=== PATIENT | female | born 2000 | race Caucasian/White ===

== ENCOUNTER 2024-02-13 00:26 | Emergency (ER) | payer SELFPAY ==
[2024-02-13 00:28] VITALS: BP 116/100
--- NOTE | 2024-02-13 00:53 | ED.GENMED ---
History of Present Illness
General
Chief Complaint: Headache
Source: patient
Time Seen by Provider: 02/13/24 00:39
History of Present Illness
History of Present Illness:
23-year-old individual presents to the emergency room complaining of headache. Patient has a history of chronic migraines. Patient took migraine medication without relief. Patient also experiencing some bodyaches and chills. Temperature here
noted to be 102.9. Symptoms have been present for the past 24 hours. Positive nausea. Vomited once. Patient states this is their typical migraine except for some scotoma noted. Patient denies any weakness numbness or tingling.
Phy Exam
Physical Exam
Physical Exam:
General: Awake, Alert, Oriented X3. No acute distress.
Vitals: unremarkable
Head: Atraumatic
Eyes: Pupils equal, EOMI
Throat: Airway intact, no exudates
Neck: Trachea midline, no nuchal rigidity
Lungs: Clear and equal b/l
Heart: Regular rate, no murmurs
Abd: Soft, Nontender, No pulsatile mass
Neuro: Cranial nerves intact, muscle strength equal bilaterally, cerebellar exam normal
Skin: Warm, dry, no rash
Extremities: pulses equal b/l, no edema
Course
Orders/Labs/Results
Orders:
Orders
02/13/24 00:52
0.9% Sodium Chloride 1000 ml [Nss] 1,000 ml IV BOLUS
Diphenhydramine [Benadryl] 25 mg IV NOW STA
Ketorolac [Toradol] 15 mg IV NOW STA
Metoclopramide [Reglan] 10 mg IV NOW STA
02/13/24 01:04
Basic Metabolic Panel Urgent
COVID-19 Antigen Urgent
Source: Nasal Swab
Complete Blood Count/With Diff Urgent
Abnormal Lab Results
02/13/24
01:04
WBC 11.7 H 10^3/uL
(4.8-10.8)
RDW 11.4 L %
(11.5-14.5)
MPV 10.6 H fL
(7.4-10.4)
Abs Immat Gran (auto) 0.1 H 10^3/uL
(0-0.05)
Absolute Neuts (auto) 9.9 H 10^3/uL
(1.4-6.5)
Absolute Lymphs (auto) 0.8 L 10^3/uL
(1.2-3.4)
Absolute Monos (auto) 0.9 H 10^3/uL
(0.1-0.6)
Neutrophils % 84.6 H %
(42.2-75.2)
Lymphocytes % 6.5 L %
(20.5-51.1)
Glucose 123 H mg/dl
(70-99)
02/13/24 01:04
02/13/24 01:04
Vital Signs
Initial and Last Documented VS:
Initial Vital Signs
Temp Pulse Resp BP Pulse Ox
102.9 F H 120 20 116/100 95
02/13/24 00:28 02/13/24 00:28 02/13/24 00:28 02/13/24 00:28 02/13/24 00:28
Last Documented Vital Signs
Temp Pulse Resp BP Pulse Ox
101.8 F H 115 16 98/60 96
02/13/24 02:43 02/13/24 02:00 02/13/24 01:21 02/13/24 02:00 02/13/24 02:00
MDM/Problems Addressed
Differential Diagnosis Includes:
Migraine, viral syndrome, COVID
MDM/Problems Addressed:
Patient presents with fever and chills, URI symptoms as well as a migraine headache. Patient has history of migraines. Patient took prescribed medications without improvement. Today's headache is very similar to the typical migraines. No nuchal
rigidity on exam. Patient felt significantly better with treatment. Patient's presentation consistent with several other patients I have seen in the emergency room recently with viral-like illness. Patient stable for discharge home.
*Pulse Oximetry
Patient hypoxic: no
*Critical Care Note
Total Time (30-74mins, 75-104mins- exclusive of procedures): Not Applicable
ED Attending Note
-
Portions of this chart may have been created with voice recognition software.� Occasional wrong word or��sound alike� substitutions may have occurred due to the inherent limitations of voice recognition software.
Discharge Plan
Departure
Patient Disposition: Home (Routine Discharge)
Date of Disposition: 02/13/24
Time of Disposition: 02:37
Patient with high blood pressure during this ER visit?: No
Condition: Good
Discharge Problem:
Acute viral syndrome, Migraine aura, persistent
Instructions: Migraines (DC), Viral Syndrome (DC)
Prescriptions:
No Action
multivitamin Tablet
1 tab PO DAILY
magnesium 500 mg Tablet
500 mg PO DAILY
nortriptyline 10 mg Capsule
20 mg PO DAILY
hydroxyzine HCl 10 mg Tablet
10 mg PO PRN PRN (Reason: anxiety)
sertraline 50 mg Tablet
75 mg PO DAILY
testosterone
0.2 mg SC FR
Referrals:
PRIVATE,PHYSICIAN [Family Provider] -
Interventions
Interventions:
*Risk Screen - Suicide Last Done: 02/13/24 00:28
*General Assessment Last Done: 02/13/24 01:10
*Neglect/Abuse Screening Last Done: 02/13/24 00:28
*ED COVID-19 Vaccine History Last Done: 02/13/24 01:10
*Nursing Disposition Last Done: 02/13/24 02:56
ED- Neurological Assessment Last Done: 02/13/24 01:30
ED-Skin Assessment Last Done: 02/13/24 01:30
Discharge Date and Time
Discharge Date/Time: 02/13/24 02:56
Print Language: [place] [employer] [place] [employer]
[2024-02-13 01:10] VITALS: BMI 24.2
[2024-02-13] MEDS: NSS 1000 IV (01:14)
[2024-02-13] MEDS: TORADOL 15 MG IV (01:15)
[2024-02-13] MEDS: BENADRYL 25 MG IV (01:17)
[2024-02-13] MEDS: REGLAN 10 MG IV (01:19)
[2024-02-13 01:21] VITALS: BP 119/74
[2024-02-13 01:32] LABS: % Basophils 0.3 % (0-2); % Eosinophils 0.1 % (0-6); % Immature Granulocytes 0.5 % (0-0.5); % Lymphocytes 6.5 % (20.5-51.1); % Neutrophils 84.6 % (42.2-75.2); Absolute Immature Granulocytes 0.1 10^3/uL (0-0.05); Absolute Lymphocytes 0.8 10^3/uL (1.2-3.4); Absolute Monocytes 0.9 10^3/uL (0.1-0.6); Absolute Neutrophils 9.9 10^3/uL (1.4-6.5); Hemoglobin 14.9 g/dL (12.0-16.0); Mean Corp Hgb Conc. 35.5 g/dL (33.0-37.0); Mean Corpuscular Hgb 30.3 pg (27.0-31.0); Mean Corpuscular Volume 85.5 fL (81.0-99.0); Mean Platelet Volume 10.6 fL (7.4-10.4); Nucleated Red Blood Cells % 0 %; Platelet Count 198 10^3/uL (130-400); Red Blood Cell Count 4.91 10^6/uL (4.20-5.40); Red Cell Dist. Width 11.4 % (11.5-14.5); White Blood Cell Count 11.7 10^3/uL (4.8-10.8)
[2024-02-13 01:43] LABS: Blood Urea Nitrogen 13 mg/dl (7-17); Calcium 9.5 mg/dl (8.4-10.2); Carbon Dioxide 22 mmol/L (22-30); Chloride 101 mmol/L (98-107); Estimated Creatinine Clearance 70 ml/min; Glucose 123 mg/dl (70-99); Potassium 3.8 mmol/L (3.5-5.1); Sodium 138 mmol/L (135-145); eGFR > 60.00
[2024-02-13 02:00] VITALS: BP 98/60
[2024-02-13 02:31] LABS: COVID-19 Antigen Negative (Negative)
== END 2024-02-13 02:56 | disposition home or self-care (01) ==
LOC: EMR 00:26
PROVIDERS: EMERGENCY PHYSICIAN Emergency Medicine
DX: B34.9 Viral infection, unspecified (principal); G43.509 Persistent migraine aura without cerebral infarction, not intractable, without status migrainosus; Z11.52 Encounter for screening for COVID-19
CPT/HCPCS: 99284; 96374; 96375 ×2; 96361; 80048; 85025; 87811